=== PATIENT | male | born 2000 | race Caucasian/White ===

== ENCOUNTER 2024-05-12 09:53 | Emergency (ER) | payer SELFPAY ==
[~2024-05-12] VITALS: Ht 170.2 cm; Wt 63.6 kg
[2024-05-12 09:59] VITALS: BP 136/96; TEMP 97.7
[2024-05-12 11:05] VITALS: PULSE 62
== END 2024-05-12 11:05 | disposition home or self-care (01) ==
LOC: COL.ER 09:53
DX: S60.031A Contusion of right middle finger without damage to nail, initial encounter (principal); F17.200 Nicotine dependence, unspecified, uncomplicated; W26.0XXA Contact with knife, initial encounter